=== PATIENT | female | born 1970 | race Caucasian/White ===

== ENCOUNTER → 2019-12-13 15:14 | Outpatient (CLI) | payer OTHER, SELFPAY ==
--- NOTE | ~2019-12-13 | MM_ITS ---
EXAMINATION: MM screening [facility] BI w diana HISTORY: Screening TECHNIQUE: Craniocaudal and mediolateral oblique 3-D tomosynthesis images were obtained and synthetic 2-D images were generated. CAD analysis was submitted and interpreted. COMPARISON: Comparison to multiple prior studies sequentially, with oldest reviewed study dated 05/2014. BREAST PARENCHYMAL COMPOSITION: There are scattered areas of fibroglandular density. FINDINGS: There is no evidence of suspicious mass, calcification, or architectural distortion to sugg est malignancy in either breast. There has been no suspicious interval change. IMPRESSION: 1. No mammographic evidence of malignancy. 2. Recommend routine screening mammography in one year. BI-RADS Category 1: Negative Reviewed, dictated and finalized at location A.
== END ==
PROVIDERS: Visit Provider Obstetrics & Gynecology
DX: Z12.31 Encounter for screening mammogram for malignant neoplasm of breast (principal)
CPT/HCPCS: 77063; 77067

== ENCOUNTER 2020-02-17 01:42 | Outpatient (CLI) | payer OTHER, SELFPAY ==
[2020-02-17 22:13] LABS: SARS-CoV-2 RNA PCR Negative
== END 2020-02-17 01:43 | disposition home or self-care (01) ==
LOC: ANHCOVIDDT 01:42
PROVIDERS: PCP Family Medicine; Visit Provider Internal Medicine Gastroenterology
DX: Z01.812 Encounter for preprocedural laboratory examination (principal); Z20.828 Contact with and (suspected) exposure to other viral communicable diseases
CPT/HCPCS: 87635; C9803; U0003

== ENCOUNTER 2020-02-20 05:18 | Day surgery (SDC) | payer OTHER, SELFPAY ==
[2020-02-14 13:02] VITALS: BMI 34.5
--- NOTE | 2020-02-20 08:50 | WPDANESEPPF ---
Anes - Initial Pre Proc Eval Procedure: Operation Date: 02/20/20 10:15 Proposed Procedures p Screening Colonoscopy - Gonzales Orourke MD Date/Time: 02/20/20 08:50 Surgeon: Gonzales Orourke MD Pre Op Diagnosis: Neoplasm Screening Patient Data Age: 50 Gender: F Height: 1.55 m Weight: 83 kg Allergies Allergy/AdvReac Type Severity Reaction Status Date / Time Penicillins Allergy Intermediate HIVES Verified 02/20/20 09:26 Home Medications Medication Instructions Recorded Confirmed Type levothyroxine 100 mcg tablet 100 mcg PO DAILY #90 tablet 02/07/20 02/14/20 Rx liothyronine 5 mcg tablet 5 mcg PO DAILY #90 tablet 02/07/20 02/14/20 Rx losartan 100 mg PO DAILY 02/14/20 02/14/20 History njdhkwletonb-axl-tdyr-FA-vit K 1 tablet PO DAILY 02/14/20 02/14/20 History [Adults Multivitamin] norethindrone (contraceptive) 0.35 mg PO DAILY 02/14/20 02/14/20 History [Norlyda] peg 3350-electrolytes 236 240 ml PO Q10M #4000 ml 02/15/20 Rx gram-22.74 gram-6.74 gram-5.86 gram solution Patient hx anesthesia problems: none Family hx anesthesia problems: none PMFSH Past Medical History Medical History (Updated 02/20/20 @ 08:51 by Silvio Carrillo MD) Compensated hypothyroidism HTN (hypertension) Obesity Surgical History Surgical History (Updated 01/26/20 @ 12:09 by Evelin Thomas MD) H/O partial thyroidectomy Social History Social History (Updated 01/26/20 @ 09:01 by Nahomy Aparicio) Social History: Smoking status: Never smoker Second hand tobacco smoke exposure: No Alcohol intake: current Drinks per week: 0 Alcohol use details: MAY HAVE 1 OR 2 PER YEAR Substance use: never Substance use type: does not use Gender identity (if verbalized by the patient): Female Spiritual care concerns: No Anes - Eval Final PreProcedure Day of Procedure 02/20/20 08:50 Patient weight: obese Heart: regular rate and rhythm Lungs: clear to auscultation and normal air movement Airway: Mallampati scale class II Neurological: alert and oriented Last oral intake: >/= 8 hours ASA classification: III Emergent: no Anesthetic plan: proceed Anesthesia type and monitoring: general GIVS Informed Consent: The patient's anesthetic plan and its attendant risks and benefits were discussed with the patient/family/POA. Questions were solicited and answers provided to the satisfaction of the patient/family/POA.
[2020-02-20 09:29] VITALS: BP 140/99; PULSE 76; RESP 18; TEMP 36.4; O2SAT 100; BMI 34.1
[2020-02-20] MEDS: LACTATED RINGERS 1,000 ML 150 ML IV CONT (09:37)
--- NOTE | 2020-02-20 10:44 | PM.HPGS ---
History of Present Illness History of Present Illness Consent: Risks, benefits, and alternatives have been discussed and questions answered. Patient agrees to proceed with procedure. Chief complaint: Neoplasm Screening Narrative: Maria Esther Winn is a 50 year old female here for first screening colonoscopy Review of Systems Constitutional: Constitutional: Denies headache(s) and Denies weakness Eyes: Eyes: Denies blurry vision ENT: Reports Normal hearing present, Denies headache(s) and Denies neck pain Cardiovascular: Cardiovascular: Denies chest pain and Denies dyspnea Respiratory: Respiratory: Denies dyspnea Gastrointestinal: Gastrointestinal: Reports no additional gastrointestinal complaints Genitourinary: Genitourinary: Denies dysuria Musculoskeletal: Musculoskeletal: Denies neck pain Integumentary/Breasts: Skin/Breast: Denies dry skin Neurologic: Reports Normal hearing present, Denies headache(s) and Denies weakness Psychiatric: Psychiatric: Denies anxiety Endocrine: Endocrine: Denies change in body appearance Hematologic/Lymphatic: Hematologic/Lymphatic: Denies easy bleeding Allergic/Immunologic: Allergic/Immunologic: Denies urticaria PMFSH Past Medical History Medical History (Updated 02/20/20 @ 08:51 by Silvio Carrillo MD) Compensated hypothyroidism HTN (hypertension) Obesity Surgical History Surgical History (Updated 01/26/20 @ 12:09 by Evelin Thomas MD) H/O partial thyroidectomy Social History Social History (Updated 01/26/20 @ 09:01 by Nahomy Aparicio) Social History: Smoking status: Never smoker Second hand tobacco smoke exposure: No Alcohol intake: current Drinks per week: 0 Alcohol use details: MAY HAVE 1 OR 2 PER YEAR Substance use: never Substance use type: does not use Gender identity (if verbalized by the patient): Female Spiritual care concerns: No Meds Home Medications and Allergies Home Medications Medication Instructions Recorded Confirmed Type levothyroxine 100 mcg tablet 100 mcg PO DAILY #90 tablet 02/07/20 02/14/20 Rx liothyronine 5 mcg tablet 5 mcg PO DAILY #90 tablet 02/07/20 02/14/20 Rx losartan 100 mg PO DAILY 02/14/20 02/14/20 History xpldjtbujrxw-nnf-nteu-FA-vit K 1 tablet PO DAILY 02/14/20 02/14/20 History [Adults Multivitamin] norethindrone (contraceptive) 0.35 mg PO DAILY 02/14/20 02/14/20 History [Norlyda] peg 3350-electrolytes 236 240 ml PO Q10M #4000 ml 02/15/20 Rx gram-22.74 gram-6.74 gram-5.86 gram solution Allergies Allergy/AdvReac Type Severity Reaction Status Date / Time Penicillins Allergy Intermediate HIVES Verified 02/20/20 09:26 Vital Signs Vital Signs - 24 hr 02/20/20 09:29 Temperature 97.6 F Pulse Rate 76 Respiratory Rate 18 Blood Pressure 140/99 H Pulse Oximetry 100 Exam Const: General: comfortable and no acute distress HENMT: General nose exam: Normal nares present Eyes: General: appearance normal, both eyes and all related structures Neck: Neck: no JVD Resp: Auscultation: clear to auscultation bilaterally Cardio: Rate: regular rate Rhythm: regular rhythm GI: Inspection: non-distended GI Palp: Yes Soft to palpation Skin: General skin exam: normal color Neuro: General: gait normal Speech: normal speech Extrem: General: normal to inspection Psych: Mental Status: mental status grossly normal Assessment and Plan Assessment and plan (1) Colon cancer screening: Code(s): Z12.11 - Encounter for screening for malignant neoplasm of colon Status: Acute Assessment and Plan: will proceed with colonoscopy
[2020-02-20 11:13] VITALS: BP 122/81; PULSE 67; RESP 18; O2SAT 100
[2020-02-20 11:23] VITALS: BP 127/78; PULSE 65; RESP 14; O2SAT 100
[2020-02-20 11:33] VITALS: BP 136/89; PULSE 76; RESP 14; O2SAT 100
== END 2020-02-20 11:54 | disposition home or self-care (01) ==
PROVIDERS: PCP Family Medicine; Visit Provider Internal Medicine Gastroenterology
PROC: 0DJD8ZZ Inspection of Lower Intestinal Tract, Via Natural or Artificial Opening Endoscopic (ICD-10-PCS; CPT 45378; principal; 2020-02-20 10:15)
DX: Z12.11 Encounter for screening for malignant neoplasm of colon (principal); K57.30 Diverticulosis of large intestine without perforation or abscess without bleeding; K64.8 Other hemorrhoids; I10 Essential (primary) hypertension; E03.9 Hypothyroidism, unspecified; E66.9 Obesity, unspecified; Z68.34 Body mass index [BMI] 34.0-34.9, adult
CPT/HCPCS: 45378; J2001; J2704; J7120

== ENCOUNTER → 2021-04-21 13:24 | Outpatient (CLI) | payer OTHER, SELFPAY ==
--- NOTE | ~2021-04-21 | MM_ITS ---
EXAMINATION: MM screening [facility] BI w diana HISTORY: Screening mammogram TECHNIQUE: Craniocaudal and mediolateral oblique 3-D tomosynthesis images were obtained and synthetic 2-D images were generated. CAD analysis was submitted and interpreted. COMPARISON: 12/13/2019, 07/07/2018, 06/17/2018 BREAST PARENCHYMAL COMPOSITION: There are scattered areas of fibroglandular density. FINDINGS: There is no evidence of suspicious mass, calcification, or architectural distortion to sugg est malignancy in either breast. There has been no suspicious interval change. IMPRESSION: 1. No mammographic evidence of malignancy. 2. Recommend routine screening mammography in one year. BI-RADS Category 1: Negative Reviewed, dictated and finalized at location A.
== END ==
PROVIDERS: PCP Internal Medicine; Visit Provider Obstetrics & Gynecology
DX: Z12.31 Encounter for screening mammogram for malignant neoplasm of breast (principal)
CPT/HCPCS: 77063; 77067

== ENCOUNTER → 2021-10-18 07:57 | Outpatient (CLI) | payer OTHER, SELFPAY ==
--- NOTE | ~2021-10-18 | US_ITS ---
EXAMINATION: US soft tissue UE LT DATE: 10/18/2021 08:25 INDICATION: Left shoulder mass x2 years, getting larger. TECHNIQUE: Grayscale and Doppler ultrasound images of the left upper cavity soft tissues were obtaine d. COMPARISON: None. FINDINGS: 5.3 x 3.2 x 6.5 cm circumscribed, isoechoic mildly lobulated subcutaneous mass in the area of concern. Minimal internal vascularity. No other mass detected. IMPRESSION: Possible subcutaneous lipoma, recommend referral for excision based on history of interval growth and overall size of this examination. Reviewed, dictated and finalized at location K.
== END ==
PROVIDERS: PCP Internal Medicine; Visit Provider Surgery
DX: R22.32 Localized swelling, mass and lump, left upper limb (principal)
CPT/HCPCS: 76882

== ENCOUNTER 2021-10-23 01:09 | Day surgery (SDC) | payer OTHER, SELFPAY ==
[2021-10-16 15:21] VITALS: BMI 35.7
--- NOTE | 2021-10-16 15:23 | SUR.PREOP ---
Report to the Outpatient Waiting Room, entrance under the green pavilion located off [facility], at time _1000 on date 10/23/21 . OR Time: 1200 . - You and your visitor will be asked a series of questions to screen for COVID 19 for your protection. - Only one visitor is allowed at this time. - The patient visitor is requested to leave or wait in car when not with patient. - A mask is required within the hospital. Patients may have clear liquids (water, carbonated beverages, clear teas, apple juice) until 3 hours prior to surgery with a maximum of 20 ounces. - No food from midnight until time of surgery - Infants may have breast milk until 4 hours before surgery, infant formula 6 hours prior to surgery. - Children will be allowed to drink immediately following surgery. If applicable, please bring a bottle or sippy cup to assist with drinking. Juice, water, soda, and popsicles are readily available. For infants on formula, please bring formula the day of surgery. Pacifiers are allowed. Take the following medications with a SIP of water the morning of surgery: __levothyroxine,liothyronine Medications to discontinue per physician ____vitamin Date to take last dose_10/20/21 Please no make-up, nail cymro, hairspray, perfume, deodorant, or body powder the day of surgery. No jewelry (including any body piercings) or valuables the day of surgery, leave them at home. Please take a shower or bath the night before, or the morning of, surgery with an antibacterial soap. Wear comfortable, loose fitting clothing. Children are encouraged to wear pajamas. - Jewelry must be removed prior to entering the operating room. Rings and piercings that are not removed may be cut off. - The hospital will not accept responsibility for valuables. - Please leave all valuables, including medications, at home the day of surgery. If you are going home after surgery, a licensed port cdl a driver must drive you home. - NO public transportation without another adult. - We recommend that an adult stay with you for 24 hours following discharge. - We also recommend that you do not drive, make important decision, drink alcoholic beverages, or take any drugs that were not prescribed by your health care provider for at least 24 hours after your discharge time. For Pediatric surgeries, we recommend two adults accompany the child home (only one inside the building at this time). Follow any additional instructions given to you from your surgeon. If you or anyone in your household have experienced Covid symptoms in the past week, please notify your surgeon or the nurse liaison at the phone number below for possible testing. Telephone instructions given to __margo urbina and asked if any additional questions and then verbalized understanding. Patient advised to call surgeon office or pre surgery nurse liaison [phone] if any additional questions.
--- NOTE | 2021-10-23 06:27 | PM.SD2 ---
Same Day Admit/Disch: HPI History of Present Illness Chief complaint: subcutaneous mass left shoulder Narrative: Maria Esther Winn is a 51 year old female Who has noticed an enlarging subcutaneous mass are left shoulder for at least last 18 months. She was seen in the office and found to have a 9 x 9 cm subcutaneous mass over the left shoulder. It was suggestive of a lipoma. An ultrasound done 4 days ago did not show evidence of a neoplasm. She is taken to surgery now for excision of this subcutaneous mass. [facility] Past Medical History Medical History Compensated hypothyroidism HTN (hypertension) Obesity Surgical History Surgical History H/O partial thyroidectomy Family History Family History Father Hypertension Heart attack Sibling Hypertension, Onset Age: 38 Social History Social History Social History: Smoking status: Never smoker Second hand tobacco smoke exposure: No Alcohol intake: current Drinks per week: 0 Alcohol use details: MAY HAVE 1 OR 2 PER YEAR Substance use: never Substance use type: does not use Living arrangements: with family Gender identity (if verbalized by the patient): Female Sexual Orientation (if Verbalized by the Patient): Straight or Heterosexual Spiritual care concerns: No Same Day Admit/Disch: Med Pre-admit Medications Home Medications Medication Instructions Recorded Confirmed Type multivit with minerals-iron 18 1 tablet PO DAILY 02/14/20 10/23/21 History mg-folic ac 400 mcg-vit K 25 mcg tablet (Adults Multivitamin) norethindrone (contraceptive) 0.35 0.35 mg PO DAILY 02/14/20 10/23/21 History mg tablet (Norlyda) losartan 100 mg tablet 100 mg PO DAILY #90 tabs 10/07/20 10/23/21 Rx levothyroxine 100 mcg tablet 100 mcg PO DAILY #90 tabs 04/07/21 10/23/21 Rx liothyronine 5 mcg tablet 5 mcg PO DAILY #90 tabs 04/07/21 10/23/21 Rx hydrocodone 5 mg-acetaminophen 325 1 - 2 tablet PO Q6H PRN pain #7 07/07/22 Rx mg tablet tabs Exam Const: General: comfortable, no acute distress, alert and awake HENMT: Head: normocephalic and atraumatic Mouth: Yes Normal oral and palatal mucosa present Eyes: Conjunctivae: conjunctivae normal Pupils: Equal, round and reactive pupils present EOM: EOMs intact bilaterally Neck: Neck: normal visual inspection, no lymphadenopathy and nontender Resp: Effort & Inspection: normal respiratory effort Auscultation: clear to auscultation bilaterally Cardio: Rate: regular rate Rhythm: regular rhythm Heart sounds: no gallops, no murmurs and no rubs GI: Inspection: non-distended GI Palp: Yes Soft to palpation, No Tenderness to palpation present (GI), No Hepatomegaly present and No Splenomegaly present Skin: Lesions: no lesions Rashes: no rashes Neuro: General: no focal motor deficits and CN's II-XI intact bilaterally Cranial nerves: Yes Equal, round and reactive pupils present, Yes Bilaterally intact EOM present, Yes facial symmetry and Yes Midline tongue present Speech: normal speech Motor exam (neuro): 5/5 motor strength present throughout and Motor abnormalities not present Extrem: General: no clubbing, cyanosis or edema and edema Left upper extremity: shoulder/upper arm ( 9 x 9 cm soft, circumscribed, mobile subcutaneous mass left shoulder) no tenderness and no unsual warmth Psych: Affect: normal affect Thought process: Normal thought process present Insight: Good insight present (Psych) DS: Summary Time Spent with Patient Time attestation: Total time spent providing and/or coordinating discharge services: DS: Admitting Diagnosis Discharge Date 10/23/2021 Admitting Diagnosis 9 cm subcutaneous mass, left shoulder - plan to excise under anesthesia. I discussed the
--- NOTE | 2021-10-23 08:10 | P.PNAN_ITS ---
Anes - Initial Pre Proc Eval Procedure: Operation Date: 10/23/21 12:00 Proposed Procedures p Excision of Subcutaneous Mass Left Shoulder - Markos Hatfield MD Date/Time: 10/23/21 08:10 Surgeon: Markos Hatfield MD Pre Op Diagnosis: subcutaneous mass left shoulder Patient Data Age: 51 Gender: F Height: 1.55 m Weight: 85.9 kg Allergies Allergy/AdvReac Type Severity Reaction Status Date / Time Penicillins Allergy Intermediate HIVES Verified 10/16/21 15:04 Home Medications Medication Instructions Recorded Confirmed Type multivit with minerals-iron 18 1 tablet PO DAILY 02/14/20 10/23/21 History mg-folic ac 400 mcg-vit K 25 mcg tablet (Adults Multivitamin) norethindrone (contraceptive) 0.35 0.35 mg PO DAILY 02/14/20 10/23/21 History mg tablet (Norlyda) losartan 100 mg tablet 100 mg PO DAILY #90 tabs 10/07/20 10/23/21 Rx levothyroxine 100 mcg tablet 100 mcg PO DAILY #90 tabs 04/07/21 10/23/21 Rx liothyronine 5 mcg tablet 5 mcg PO DAILY #90 tabs 04/07/21 10/23/21 Rx Patient hx anesthesia problems: none Family hx anesthesia problems: none Results Review: All pre-operative results and documents have been reviewed as part of the pre- operative evaluation. [facility], [facility] Past Medical History Medical History Compensated hypothyroidism HTN (hypertension) Obesity Surgical History Surgical History H/O partial thyroidectomy Family History Family History Father Hypertension Heart attack Sibling Hypertension, Onset Age: 38 Social History Social History Social History: Smoking status: Never smoker Second hand tobacco smoke exposure: No Alcohol intake: current Drinks per week: 0 Alcohol use details: MAY HAVE 1 OR 2 PER YEAR Substance use: never Substance use type: does not use Living arrangements: with family Gender identity (if verbalized by the patient): Female Sexual Orientation (if Verbalized by the Patient): Straight or Heterosexual Spiritual care concerns: No Anes - Eval Final PreProcedure Day of Procedure 10/23/21 08:10 Patient weight: obese Heart: regular rate and rhythm Lungs: clear to auscultation and normal air movement Airway: Mallampati scale class II Neurological: alert and oriented Last oral intake: >/= 8 hours ASA classification: III Emergent: no Anesthetic plan: proceed Anesthesia type and monitoring: general GIVS and LMA Results Review: All pre-operative results and documents have been reviewed as part of the pre- operative evaluation. Informed Consent: The patient's anesthetic plan and its attendant risks and benefits were discussed with the patient/family/POA. Questions were solicited and answers provided to the satisfaction of the patient/family/POA.
[2021-10-23 10:19] VITALS: BP 150/99; PULSE 70; RESP 16; TEMP 36.7; O2SAT 99
[2021-10-23] MEDS: LACTATED RINGERS 1,000 ML 30 ML IV CONT (10:33)
--- NOTE | 2021-10-23 12:20 | WPDHPUPDATE1 ---
History and Physical Update Update Date/Time: 10/23/21 12:20 History and Physical has been reviewed, including an updated exam of the patient. There are NO changes in the patient's condition. Risks, benefits, and alternatives have been discussed and questions answered. Patient agrees to proceed with procedure.
[2021-10-23] MEDS: ceFAZolin 2 GM/D5W 50 ML 2 GM/50 ML BAG IVPB (12:28)
[2021-10-23] MEDS: BUPIVACAINE/EPINEPHRINE 0.25% 50 ML VIAL 30 ML INFILTRATE (12:51)
[2021-10-23 13:32] VITALS: BP 90/58; PULSE 75; RESP 14; TEMP 36.1; O2SAT 98
--- NOTE | 2021-10-23 13:36 | P.OP_ITS ---
Procedure Note - Detailed Date of Procedure 10/23/21 Pre-op Diagnosis subcutaneous mass left shoulder Post-op Diagnosis Same Procedure Performed Excision 8 x 6 x 4 cm subcutaneous mass left shoulder with overlying skin Surgeon Markos Hatfield MD Recycling Director Maritza COLINA Anesthesia General (G IV S) and Local (0.25% bupivacaine with epinephrine) Indications Patient has an enlarging subcutaneous mass in the left shoulder. It measured 9 x 9 cm in the office. By exam it appeared to be a lipoma. An ultrasound was done which did not show evidence of a neoplasm. She is taken to surgery now for excision Findings Consistent with a large lipoma dimensions as above. Skin was taken with the lipoma to avoid the need for a drain and for postop clinical appearance. Description of Procedure The patient was checked in the preoperative holding area. The site was marked. She was then taken to surgery and anesthesia was introduced. The left shoulder where the lipoma was located was prepped and draped. An ellipse was drawn over the area along the lines of least skin tension. This differed from the ellipse I sherin in the preop area. I then infiltrated local in the area of the intended skin excision as well as under the lipoma and around the edges of the lipoma. The ellipse of skin was excised. Cautery was used for hemostasis. The skin was left attached to the mass. Using blunt and sharp dissection each side of the subcutaneous mass which was now obviously a lipoma was carefully dissected from the surrounding subcutaneous and off the fascia overlying the left shoulder. The skin on each into the ellipse was excised with a small amount of subcutaneous fat. Eventually the subcutaneous mass was completely freed. It was measured with dimensions as above. It was sent to pathology in formalin. The wound was made hemostatic with the cautery. The wound was then closed with subcuticular interrupted 3-0 and 4-0 Vicryl suture. A running 4-0 Monocryl skin suture was then placed. The wound was dressed with Exofin surgical adhesive. Patient was awakened and taken to recovery in good condition. Sponge and needle counts were correct x2. Estimated Blood Loss -5 Drains No Packing No Pathology Yes (Subcutaneous mass left shoulder grossly a lipoma) Complications No immediate complications Condition Stable Disposition Same day [facility] Billing Surgery - Charge Forward: Surgery Billing (Excision 8 cm subcutaneous mass left shoulder)
[2021-10-23 13:55] VITALS: BP 109/65; PULSE 69; RESP 14; O2SAT 99
[2021-10-23 14:25] VITALS: BP 126/86; PULSE 62; RESP 14
[2021-10-23 14:40] VITALS: BP 145/70; PULSE 60; RESP 14
== END 2021-10-23 14:46 | disposition home or self-care (01) ==
PROVIDERS: PCP Internal Medicine; Visit Provider Surgery
PROC: (CPT 23071; principal; 2021-10-23 12:00)
DX: D17.22 Benign lipomatous neoplasm of skin and subcutaneous tissue of left arm (principal); I10 Essential (primary) hypertension; E03.9 Hypothyroidism, unspecified; E66.9 Obesity, unspecified; Z68.33 Body mass index [BMI] 33.0-33.9, adult
CPT/HCPCS: 23071; 88304; J0690; J2250; J2405; J2704; J3010; J7120

== ENCOUNTER 2021-12-19 07:40 | Outpatient (CLI) | payer OTHER, SELFPAY ==
--- NOTE | 2021-12-19 | ECHO_ITS ---
Patient Info Name: Maria Esther Winn Age: 51 years : 1970 Gender: Female Ht: 60 in Wt: 186 lbs BSA: 1.93 m2 HR: 70 bpm BP: 149 / 85 mmHg Technical Quality: Good Exam Date: 12/19/2021 8:08 AM Exam Location: [facility] Patient Status: Outpatient Admit Date: 12/19/2021 Staff Ordering Physician: Mira Townsend MD Coronary Care Unit Nurse: Lizzy Lange RDCS Attending Provider: Mira Townsend MD Referring Physician: Kristian MILAN; Exam Type: CA echo doppler color flow Study Info Indications I49.3 - Ventricular premature depolarization Complete two-dimensional, color flow and Doppler transthoracic echocardiogram is performed. Summary 1. Complete two-dimensional, color flow and Doppler transthoracic echocardiogram is performed. 2. Left ventricular chamber dimension is normal. 3. Left ventricular systolic function is normal, estimated at 60-65%. 4. The left ventricular diastolic function is abnormal. 5. E/e' 11 is mildly elevated. 6. There is mild mitral valve regurgitation. 7. There is trace tricuspid valve regurgitation. 8. Mild pulmonary hypertension, estimated pulmonary arterial systolic pressure is 42 mmHg. Left Ventricle E/e' 11 is mildly elevated. Left ventricular chamber dimension is normal. Left ventricular systolic function is normal, estimated at 60-65%. The left ventricular diastolic function is abnormal. Right Ventricle Right ventricular systolic function is normal and with normal TAPSE 3.1 cm. Right ventricular chamber dimension is normal. Left Atria Left atrial chamber dimension is normal. Right Atria Right atrial chamber dimension is normal. Aortic Valve The aortic valve is trileaflet. There is no aortic valve stenosis. There is no aortic valve regurgitation. Pulmonic Valve There is no pulmonic regurgitation. Mitral Valve There is no mitral valve stenosis. There is mild mitral valve regurgitation. Tricuspid Valve There is trace tricuspid valve regurgitation. Mild pulmonary hypertension, estimated pulmonary arterial systolic pressure is 42 mmHg. Pericardium/Pleural There is no pericardial effusion. Inferior Vena Cava Normal inferior vena cava with >50% collapse upon inspiration consistent with normal right atrial pressure, 5 mmHg. Aorta The aortic root size at the sinus of Valsalva is normal. Left Ventricular Outflow Tract Name Value Normal LVOT 2D LVOT Diameter 1.9 cm LVOT Doppler LVOT Peak Gradient 4 mmHg LVOT Mean Gradient 2 mmHg LVOT VTI 22 cm LVOT VTI/AV VTI Ratio 0.8 LVOT Stroke Volume 65 ml LVOT CO 4.8 l/min LVOT CI 2.5 l/min/m2 Pulmonic Valve Name Value Normal RVOT Doppler RVO
--- NOTE | 2021-12-23 11:32 | P.PCNHOL_ITS ---
Holter/Event Monitor Holter/Event Monitor Date of procedure: 12/23/21 Holter/Event Procedure: 24 Hr Holter Monitor Finding: Predominant underlying rhythm is sinus rhythm, heart rate ranges between 45 beats per minute to 108 beats per minute, average heart rate 73 beats per minute. Frequent ventricular ectopy was seen in the form of isolated PVCs, ventricular couplets, triplets, bigeminy and trigeminy with a burden of 10% for the duration of the study. Episodes of bradycardia were noted with the lowest heart rate of 45 beats per minute in the assembly instructions writer hours. No other significant arrhythmias or heart blocks were noted. Conclusion: 1. Predominant underlying rhythm is sinus rhythm, average heart rate 73 beats per minute. 2. Frequent ventricular ectopy was seen in the form of isolated PVCs, couplets, triplets, bigeminy and trigeminy with a burden of 10% for the duration of the study. 3. No other significant arrhythmias were noted. 4. No symptoms reported in the patient diary. 5. Clinical correlation is recommended.
== END 2021-12-19 07:41 | disposition home or self-care (01) ==
PROVIDERS: PCP Internal Medicine; Visit Provider Internal Medicine
DX: I49.3 Ventricular premature depolarization (principal)
CPT/HCPCS: 93225; 93226; 93306

== ENCOUNTER 2022-04-08 07:59 | Outpatient (CLI) | payer OTHER, SELFPAY ==
--- NOTE | 2022-04-28 01:51 | WPDHOMESLEEP ---
Sleep Study - Home Unattended Date of Study: 04/08/22 Ordering Provider: Smith Ibanez MD Interpreting Provider: Kelly Wall, DO Home Sleep Study Type: Watch PAT Height: 1.52 m Weight: 85.729 kg Body Mass Index: 36.9 Neck Circumference (inches): 15 [place]: 9 Reason for Sleep Study PVCs on 12 lead EKG. Holter showed 10% PVC burden. Sleep History The patient is a 52-year-old female with hypertension, hypothyroidism and PVC burden that had a sleep study ordered by her school secretary for evaluation of sleep apnea. 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 The patient denies awakening from sleep short of breath. She denies awakening at night with heartburn, belching or cough. She constantly snores loud enough that others complain. She rarely has trouble sleeping when she has a cold. She denies waking up gasping for air throughout the night. She denies having breathing problems at night observed by herself or others. She denies sweating excessively at night. She denies having heart palpitations or irregular heartbeats during the night. She rarely falls asleep during the day and never while driving. She denies sleep paralysis, cataplexy and hypnagogic / hypnopompic hallucinations. She denies having trouble at school or work due to sleepiness. She denies feeling afraid of going to sleep. She denies having nightmares. She rarely remembers her dreams. She occasionally has thoughts racing through her mind. She denies feeling sad or depressed. She rarely has anxiety. She rarely has muscular tension. She rarely notices parts of her body jerk. She rarely kicks during the night. She denies experiencing crawling and aching feelings in her legs as well as leg pain during the night. She denies grinding her teeth during sleep and awakening with morning jaw pain. She is occasionally bothered by pain during the day but rarely awakened by pain during the night. She occasionally wakes up feeling stiff in the morning. She occasionally wakes up with sore or achy muscles. She occasionally wakes up with pain in the neck, spine or other joints. She goes to bed at 9:00 p.m. on weekdays and between 9-10 p.m. on the weekends. It takes her 5-10 minutes to fall asleep. She wakes up 3-4 times throughout the night to urinate. She is able to fall back asleep within a few minutes. She wakes up at 5:15 a.m. on weekdays and between 6-7 a.m. on the weekends. She typically gets 6 hours of sleep per night. She will stay in bed for 15-20 minutes after waking up in the morning. She currently lives with her . She does not consume any caffeinated beverages within 2 hours of bedtime. She does not engage in physical exercise before bedtime. She will read watch television before falling asleep. She denies taking naps in the afternoon or the evening. She denies consuming caffeinated beverages throughout the day. She denies tobacco, alcohol and recreational drug use. [facility] Past Medical History Medical History Compensated hypothyroidism HTN (hypertension) Obesity Surgical History Surgical History H/O partial thyroidectomy History of excision of mass Excision 8 x 6 x 4 cm subcutaneous mass left shoulder with overlying skin 10/23/2021 Family History Family History Father Hypertension Heart attack Sibling Hypertension, Onset Age: 38 Social History Social History Social History: Smoking status: Never smoker Second hand tobacco smoke exposure: No Alcohol intake: current Drinks per week: 0 Alcohol use details: MAY HAVE 1 OR 2 PER YEAR Substance use: never Substance use type: does not use Gender identity (if verbalized by the patient): Female Sexual Orientation (if Verbalized by the
[2022-04-28 02:01] VITALS: BMI 36.9
== END 2022-04-09 11:29 | disposition home or self-care (01) ==
LOC: ANHCSM 08:00
PROVIDERS: PCP Internal Medicine; Visit Provider Internal Medicine Cardiovascular Disease
DX: G47.33 Obstructive sleep apnea (adult) (pediatric) (principal); R06.83 Snoring; R40.0 Somnolence
CPT/HCPCS: 95800

== ENCOUNTER → 2022-09-29 13:27 | Outpatient (CLI) | payer OTHER, SELFPAY ==
--- NOTE | ~2022-09-29 | MM_ITS ---
EXAMINATION: MM screening [facility] BI w diana HISTORY: Screening mammogram TECHNIQUE: Craniocaudal and mediolateral oblique 3-D tomosynthesis images were obtained and synthetic 2-D images were generated. CAD analysis was submitted and interpreted. COMPARISON: 04/21/2021, 12/13/2019 bilateral screening mammogram examinations BREAST PARENCHYMAL COMPOSITION: There are scattered areas of fibroglandular density. FINDINGS: Possible 12 mm subareolar right breast mass. 4.7 mass in the posterior inner right breast. Diagnostic right mammogram and right breast ultrasound examination are recommended for further evaluation. No suspicious mass, architectural distortion, microcalcifications, skin thickening or retraction of e ither breast is noted otherwise. IMPRESSION: 1. Right breast masses 2. Diagnostic right mammogram and right breast ultrasound examination are recommended BI-RADS Category 0: Incomplete: Needs additional imaging evaluation. Reviewed, dictated and finalized at location A. IMPRESSION: 1. Right breast masses 2. Diagnostic right mammogram and right breast ultrasound examination are recom mended BI-RADS Category 0: Incomplete: Needs additional imaging evaluation.
== END ==
PROVIDERS: PCP Internal Medicine; Visit Provider Internal Medicine
DX: Z12.31 Encounter for screening mammogram for malignant neoplasm of breast (principal); R92.8 Other abnormal and inconclusive findings on diagnostic imaging of breast
CPT/HCPCS: 77063; 77067

== ENCOUNTER 2022-10-08 09:15 | Outpatient (CLI) | payer OTHER, SELFPAY ==
--- NOTE | ~2022-10-08 | MMUS_ITS ---
EXAMINATION: MM diagnostic baljit RT w diana, US breast RT limited HISTORY: Right breast masses suggested on 09/29/2022 screening mammogram examination, including possib le 12 mm subareolar right breast mass and 4.7 mm mass in the posterior inner right breast TECHNIQUE: Additional 3-D tomosynthesis images of the right breast were performed and synthetic 2-D i mages were generated. CAD analysis was submitted and interpreted. High resolution limited right breas t ultrasound was performed. COMPARISON: 09/29/2022, 04/21/2021, 12/13/2019 bilateral screening mammogram examinations FINDINGS: MAMMOGRAPHIC FINDINGS: 5 8.5 mm circular low-density circumscribed opacity is suggested in the right subareolar area. Approximately 2.5 x 3.9 mm low-density circumscribed asymmetric opacity is noted posteriorly in the m id to upper posterior right breast (right MLO Tomosynthesis image 47/75; right CC coned tomosynthesis # [id number]). This was not present on 04/21/2021. This is suspicious. ULTRASOUND: Right breast subareolar: 10.6 x 6.4 circumscribed heterogeneous complex mass is present, correspondi ng to new mammographic opacity in subareolar area. This was not present on prior mammograms. Ultras ound guided biopsy is recommended. No sonographic correlate was found for the small new posterior upper inner quadrant 2.5 x 3.9 mm mamm ographic mass. IMPRESSION: 1. 2 new suspicious masses, one in the subareolar area and the other in the posterior upper inner eduardo drant 2. Ultrasound-guided biopsy of the subareolar mass is recommended with second look ultrasound at that time to try to locate the posterior upper inner quadrant 2.5 x 3.9 mm mass. If this can be located a t second look ultrasound at the time of the biopsy of the subareolar mass, then biopsy in the posteri or upper inner quadrant mass can be performed at the same setting. If this is still not detected sonographically at second look ultrasound, then stereotactic breast bio psy of the posterior upper inner quadrant right breast mass can be performed at a shortly length late r date. BI-RADS category 4, suspicious findings. Reviewed, dictated and finalized at location A. IMPRESSION: 1. 2 new suspicious masses, one in the subareolar area and the other in the pos terior upper inner quadrant 2. Ultrasound-guided biopsy of the subareolar mass is recommended with second l ook ultrasound at that time to try to locate the posterior upper inner quadrant 2.5 x 3.9 mm mass. If this can be located at second look ultrasound at the asim e of the biopsy of the subareolar mass, then biopsy in the posterior upper inne r quadrant mass can be performed at the same setting. If this is still not detected sonographically at second look ultrasound, then s tereotactic breast biopsy of the posterior upper inner quadrant right breast ma ss can be performed at a shortly length later date. BI-RADS category 4, suspicious findings.
== END 2022-10-08 09:16 | disposition home or self-care (01) ==
PROVIDERS: PCP Internal Medicine; Visit Provider Internal Medicine
DX: R92.8 Other abnormal and inconclusive findings on diagnostic imaging of breast (principal)
CPT/HCPCS: 76642; 77061; 77065; G0279